=== PATIENT | female | born 2005 | race Caucasian/White ===

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

== ENCOUNTER → 2025-02-19 08:34 | Outpatient (BNVA) | payer BC, SELFPAY | PROVIDERS: PCP Family Medicine; Visit Provider Obstetrics & Gynecology | DX: N91.2 Amenorrhea, unspecified (principal) | CPT/HCPCS: 81025 ==

== ENCOUNTER 2025-02-27 13:58 | Outpatient (CLI) | payer BC, SELFPAY ==
--- NOTE | 2025-02-27 14:30 | US_ITS ---
WS: [id number] EARLY OBSTETRICAL ULTRASOUND (<14 WEEKS). HISTORY: Z34.90 - Encounter for supervision of normal , u... COMPARISON: None available. Transabdominal and transvaginal imaging is submitted. Single intrauterine gestational sac is identified. Gestational sac diameter of 2.2 cm consistent with a gestation of 7 weeks and 1 day. There is a small soft tissue focus adjacent to the amnion. Whether this is a yolk sac or pole it is difficult to determine. If this is a crown-rump length it corresponds to a gestation of 6 weeks and 1 day. There is no cardiac activity identified. The cervix is closed. RIGHT ovary measures 2.1 x 2.2 x 1.1 cm. Several small follicles are identified. LEFT ovary not identified. US/US OB <= 14 weeks fetus [id number] IMPRESSION: 1. No definite pole or cardiac activity identified. Recommend 1 week tra nsvaginal pelvic ultrasound follow-up. 2. Gestational sac measurement consistent with an age of 7 weeks and 1 day. 3. There is a very tiny focus in the gestational sac which may be the yolk sac or an early pole. There is no cardiac activity identified. Cannot exclud e early embryonic demise or failed intrauterine gestation. Recommend 1 week tra nsvaginal pelvic ultrasound follow-up.
== END 2025-02-27 13:59 | disposition home or self-care (01) ==
LOC: RAD 14:00
PROVIDERS: PCP Family Medicine; Visit Provider Obstetrics & Gynecology
DX: Z34.90 Encounter for supervision of normal pregnancy, unspecified, unspecified trimester (principal)
CPT/HCPCS: 76801

== ENCOUNTER 2025-03-11 09:32 | Outpatient (CLI) | payer BC, SELFPAY | END 2025-03-11 09:33 | disposition home or self-care (01) | LOC: LAB 03-13 07:54 | PROVIDERS: PCP Family Medicine; Visit Provider Obstetrics & Gynecology | DX: O02.1 Missed abortion (principal) | CPT/HCPCS: 84315; 84702; 85025 ==

== ENCOUNTER → 2025-03-13 10:53 | Outpatient (BNVA) | payer BC, SELFPAY | PROVIDERS: PCP Family Medicine; Visit Provider Obstetrics & Gynecology | DX: O02.1 Missed abortion (principal) | CPT/HCPCS: 84702 ==